=== PATIENT | male | born 1995 | race Hispanic/Latino ===

== ENCOUNTER 2024-09-07 02:57 | Emergency (ER) | payer BC, MEDICAID ==
[~2024-09-07] VITALS: Ht 167.6 cm; Wt 93.0 kg
[2024-09-07] MEDS ORDERED: ALBUTEROL 0.083% 2.5 MG/3 ML INH IH ONE (03:30)
[2024-09-07] MEDS ORDERED: guaiFENesin-DM 200/20MG 10ML PO ONE (03:30)
[2024-09-07 03:39] LABS: BASOPHILS # (AUTO) 0.07 K/uL (0.00-0.20); BASOPHILS % (AUTO) 0.6 % (0.0-5.0); EOSINOPHILS # (AUTO) 0.32 K/uL (0.00-0.70); EOSINOPHILS % (AUTO) 2.6 % (0.0-8.0); HEMATOCRIT 45.5 % (42-54); IMMATURE GRANULOCYTE ABSOLUTE 0.12 K/uL (0-1); LYMPHOCYTES # (AUTO) 2.5 K/uL (1.0-4.8); LYMPHOCYTES % (AUTO) 20.3 % (21.0-51.0); MEAN CORPUSCULAR HEMOGLOBIN 29.1 pg (27.0-33.0); MEAN CORPUSCULAR HGB CONC 33.4 g/dL (32.0-36.0); MONOCYTES # (AUTO) 0.5 K/uL (0.1-1.0); MONOCYTES % (AUTO) 3.9 % (3.0-13.0); NEUTROPHILS # (AUTO) 8.7 K/uL (1.8-7.7); NEUTROPHILS % (AUTO) 71.6 % (40.0-77.0); PLATELET COUNT (AUTO) 196 K/uL (130-400); RED BLOOD CELL COUNT(AUTO) 5.23 MIL/uL (4.50-6.20); RED CELL DISTRIBUTION WIDTH 12.9 % (11.0-15.5); WHITE BLOOD COUNT (AUTO) 12.1 K/uL (4.8-10.8)
[2024-09-07 03:56] LABS: APPEARANCE,URINE CLEAR (CLEAR); BILIRUBIN,URINE NEGATIVE (NEGATIVE); COLOR,URINE LIGHT-YELLOW (YELLOW); GLUCOSE, URINE (UA) NEGATIVE (NEGATIVE); KETONES,URINE NEGATIVE (NEGATIVE); LEUKOCYTE ESTERASE ,URINE NEGATIVE Leu/uL (NEGATIVE); NITRATE,URINE NEGATIVE (NEGATIVE); OCCULT BLOOD,URINE NEGATIVE (NEGATIVE); PROTEIN,URINE 10 mg/dL (NEGATIVE); UROBILINOGEN,URINE 0.2 mg/dL (0.2-1.0)
--- NOTE | 2024-09-07 03:57 | ERN ---
ED Note History of Present Illness Stated Complaint: C/O RUQ PAIN WITH N X V Chief Complaint: Abdominal Pain Time Seen by MD: 03:02 Dictation: This is a 29-year-old male with known history of cholelithiasis came into the emergency room with complaints of right upper quadrant pain. No nausea vomitings diarrhea hematemesis or melena. He ate some Hungarian fried rice And wings. He had similar presentation in the past when he was told he had gallstones and was recommended to get the gallbladder out. But as symptoms improved he did not follow up on that He indicates that off and on depending on the type of food he eats, he does have intermittent right upper quadrant pain. Temperature 99 pulse 64 respirations 20 blood pressure 126/78 with a pulse oximetry of 100% on room air Allergies: Coded Allergies: No Known Allergies (Unverified Allergy, Unknown, 09/07/24) Past Medical History Past Medical History: No Pertinent History Surgical History: None Family History: Negative RN Note Reviewed/Agreed w/PFSH: Yes Review of System Dictation Constitutional: Negative for fever,chills, and weight loss Eyes: Negative for injury, pain,redness, and discharge ENT: Negative for injury,pain or swelling Cardiovascular: Negative for chest pain, palpitations, and edema Respiratory: Negative for shortness of breath, cough, and wheezing, Abdomen/GI: Positive for abdominal pain, denies nausea, vomiting, diarrhea, and constipation Back: Negative for injury and pain : Negative for injury, bleeding and discharge MS/Extremity: Negative for injury and deformity Skin: Negative for rash, and discoloration Neuro: Negative for headache, weakness, numbness, tingling, and seizure Psych: Negative for suicide ideation, homicidal ideation, and hallucinations Initial Vital Sign VS Vital Signs Date Time Temp Pulse Resp B/P (MAP) Pulse Ox O2 Delivery O2 Flow Rate FiO2 09/07/24 02:59 99.0 64 20 126/78 100 Room Air 09/07/24 03:22 0 21 Physical Exam Dictation General: awake, alert, NAD Head/Face: Normocephalic, atraumatic Eyes: PERRL, EOMI, vision at baseline ENT: oral cavity clear, TMs clear, no signs of infection Neck: Trachea midline, supple, no nuchal rigidity Cardiovascular: RRR, normal S1/S2, No MRGs, no JVD Respiratory: CTAB, no respiratory distress, No rales or wheezes Abdomen: Soft, non-tender, non-distended, normal bowel sounds, no guarding or rebound. Skin: Warm, dry, normal turgor, no rash MS/Extremity: Pulses equal, no cyanosis, neurovascular intact, FROM Neuro: COAx4, GCS 15, strength 5/5, CN 2-12 intact, normal cerebellar exam, normal gait, Psych: Normal behavior, mood, and affect normal Extremities-trace edema without any palpable cords, Homans sign is negative Results (Laboratory/Radiology) Laboratory/Radiology Laboratory Tests Test 09/07/24 03:20 09/07/24 03:46 White Blood Count 12.1 K/uL (4.8-10.8) H Red Blood Count 5.23 MIL/uL (4.50-6.20) Hemoglobin 15.2 g/dL (14.0-18.0) Hematocrit 45.5 % (42-54) Mean Corpuscular Volume 87.0 fL (79-99) Mean Corpuscular Hemoglobin 29.1 pg (27.0-33.0) Mean Corpuscular Hemoglobin Concent 33.4 g/dL (32.0-36.0) Red Cell Distribution Width 12.9 % (11.0-15.5) Platelet Count 196 K/uL (130-400) Mean Platelet Volume 9.2 fL (7.5-10.5) Immature Granulocyte % (Auto) 1.0 % (0-1) Neutrophils (%) (Auto) 71.6 % (40.0-77.0) Lymphocytes (%) (Auto) 20.3 % (21.0-51.0) L Monocytes (%) (Auto) 3.9 % (3.0-13.0) Eosinophils (%) (Auto) 2.6 % (0.0-8.0) Basophils (%) (Auto) 0.6 % (0.0-5.0) Neutrophils # (Auto) 8.7 K/uL (1.8-7.7) H Lymphocytes # (Auto) 2.5 K/uL (1.0-4.8) Monocytes # (Auto) 0.5 K/uL (0.1-1.0) Eosinophils # (Auto) 0.32 K/uL (0.00-0.70) Basophils # (Auto) 0.07 K/uL (0.00-0.20) Absolute Immature Granulocyte (auto 0.12 K/uL (0-1) Nucleated Red Blood Cells 0.0 % (0.0-0.19) Sodium Level 142 mmol/L (136-145) Potassium Level 3.7 mmol/L (3.5-5.1) Chloride Level 102 mmol/L (101-111) Carbon Dioxide Level 33 mmol/L (21-32) H Blood Urea Nitrogen 17 mg/dL (7-18) Creatinine 1.0 mg/dL (0.5-1.3) Glomerular Filtration Rate Calc 104 mL/min (>90) Random Glucose 113 mg/dL (70-105) H Total Calcium 8.5 mg/dL (8.5-10.1) Lipase 46 U/L (16-77) Urine Color LIGHT-YELLOW (YELLOW) Urine Appearance CLEAR (CLEAR) Urine pH 6.0 (5.0-8.0) Urine Specific [place] 1.033 (1.001-1.031) Urine Protein 10 mg/dL (NEGATIVE) H Urine Glucose (UA) NEGATIVE mg/dL (NEGATIVE) Urine Ketones NEGATIVE mg/dL (NEGATIVE) Urine Occult Blood NEGATIVE (NEGATIVE) Urine Nitrate NEGATIVE (NEGATIVE) Urine Bilirubin NEGATIVE mg/dL (NEGATIVE) Urine Urobilinogen 0.2 mg/dL (0.2-1.0) Urine Leukocyte Esterase NEGATIVE Nica/uL Urine RBC 2-5 /HPF (0-1) H Urine WBC 0-1 /HPF (0-1) Urine Bacteria None /HPF (None Seen) Labs Reviewed?: Yes ED Course ED Course Orders Procedure Category Date Status Time Guaifenesin-Dm PHA 09/07/24 Complete 200/20mg 10ml 03:30 Albuterol 0.083% PHA 09/07/24 Complete 2.5mg/3ml (Proventil 03:30 Vital Signs Per CPOE 09/07/24 Transmitted Routine 03:06 Saline Lock Iv CPOE 09/07/24 Transmitted 03:06 Cbc With Differential LAB 09/07/24 Complete 03:06 Lipase LAB 09/07/24 Complete 03:06 Urinalysis Profile LAB 09/07/24 Complete 03:06 Basic Metabolic Panel LAB 09/07/24 Complete 03:06 Ketorolac PHA 09/07/24 Complete Tromethamine 15mg/Ml 05:00 Current Medications Medications (Trade) Dose Ordered Sig/Aubree Route PRN Reason Start Time Stop Time Status Last Admin Dose Admin Albuterol Sulfate (Proventil 0.083% 2.5mg/3ml) 2.5MG ONCE ONCE IH 09/07/24 03:30 09/07/24 03:09 DC Guaifenesin/ Dextromethorphan (RobiTUSSin DM 200/20MG 10ML) 5 ml ONCE ONCE PO 09/07/24 03:30 09/07/24 03:09 DC Ketorolac Tromethamine (toRADol) 15 mg ONCE ONCE IM 09/07/24 05:00 09/07/24 05:01 DC 09/07/24 05:05 Vital Signs Date Time Temp Pulse Resp B/P (MAP) Pulse Ox O2 Delivery O2 Flow Rate FiO2 09/07/24 03:22 99.0 66 19 148/94 99 Room Air* 0 21 09/07/24 02:59 99.0 64 20 126/78 100 Room Air We will perform diagnostic labs, administer medications according to the patient's complaint. Once the results are available, will review and personally interpreted the labs to rule out any acute life-threatening emergency the trach require immediate intervention and treatment. I will then re-evaluate the patient after treatment and diagnostic exams have return to determine whether the patient requires any further testing, can safely be discharged home or need further admission to hospital for additional treatment and evaluation. Labs reviewed CBC showed a white count of 12.1 urinalysis is negative BNP is normal lipase is with a normal limits. And by the time I examined him he had no tenderness Sher's sign was not positive. Patient stated that he just came to the ER for pain medication and he does not want any further additional evaluations and he is aware that at some point he needs to get his gallbladder out Medical Decision Making MDM MDM: Differential diagnosis: Esophagitis, gastritis, biliary colic, cholecystitis Rationale: Tests considered and ordered secondary to shared decision making include: Previous outside records reviewed: Old ER visits. Risk of complication and/or morbidity or mortality of patient management: None Medications-Per medication reconciliation Need for hospitalization: Patient does not meet criteria for hospitalization. Need for emergency major/minor surgery: No There are no social concerns with this patient. Prescription drug management Prescriptions will include symptomatic care Patient's prior external medical records from other ER visits were reviewed by me as indicated. Prior testing and results from previous visits were reviewed. Prior tests were taken into account with medical decision making and resource utilization, independent historian/historians were used to obtain complete medical history. I independently interpreted the test that were performed, results were reviewed by me and considered findings on radiology if ordered. Medical management and examination interpretation discussions were had by me with other qualified healthcare professionals as indicated for the patient's care. Problem List Problem List: (1) Biliary colic (2) Cholelithiasis DX & DISP Disposition: Discharge Departure Impression: Primary Impression: Biliary colic Additional Impression: Cholelithiasis Condition: Stable Additional Instructions: Patient and the caregiver have been informed of all the diagnostic tests and the imaging conducted during the today's visit to the emergency room and has verbalized understanding of the results I have personally reviewed and interpreted all diagnostic exams performed here in the ER today as well as the vital signs documented by the nursing staff. The patient is now being discharged to home and should follow up with the primary care physician or the specialist as directed by the ER staff. Follow-up with primary care provider in 1 to 2 days. Take medications as dir ected here in the emergency room. Okay to continue home medications unless otherwise discussed during your visit in the emergency room today. Return to your nearest emergency room if symptoms worsen or if there is no improvement. Call 911 if you need immediate assistance. Take Tylenol or Motrin [id number] as needed and if no contraindications are present. Increase oral hydration. A wound culture or urine culture was ordered here in the emergency room department please follow-up with primary care provider and advise them to get repeat ports from our facility. If you had any Bashir wrap/splints that were applied here, please do not remove them until you see your primary care or specialty. Referrals: NONE (PCP) KAREEM PRIEST MD Sep 07, 2024 03:57
[2024-09-07 04:00] LABS: POTASSIUM 3.7 mmol/L (3.5-5.1)
[2024-09-07 04:01] LABS: ADD UA MICROSCOPIC YES
[2024-09-07 04:02] LABS: MUCUS,URINE RARE LPF (None Seen); WBC,URINE 0-1 /HPF (0-1)
[2024-09-07] MEDS: ketOROlac 15MG/ML VIAL (15MG/ML) IM ONE (05:05)
[2024-09-07 06:08] VITALS: BP 133/81; PULSE 72; RESP 17; TEMP 98.7; O2SAT 99
== END 2024-09-07 06:14 | disposition home or self-care (01) ==
LOC: EDH 02:57
DX: K80.70 Calculus of gallbladder and bile duct without cholecystitis without obstruction (principal)
CPT/HCPCS: 99284; 80048; 83690; 85025; 81001; 36415; 96372; J1885